=== PATIENT | male | born 1980 | race Two or more races ===

== ENCOUNTER 2018-12-29 22:52 | Emergency (ER) | payer MEDICAID ==
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
[2018-12-29] MEDS ORDERED: OLANZapine DISINTEGR 5 MG TAB PO ONE (23:22)
[2018-12-29 23:41] LABS: PLATELET COUNT 219 10^3/uL (150-400)
[2018-12-30 08:36] VITALS: BP 101/69
[2018-12-30] MEDS ORDERED: OLANZapine 10 MG/2 ML VIAL ONE (13:33)
[2018-12-30] MEDS ORDERED: HALOPERIDOL LACT 5 MG/ML INJ ONE (13:39)
[2018-12-30] MEDS ORDERED: OLANZapine 10 MG/2 ML VIAL IM ONE (13:41)
[2018-12-30] MEDS ORDERED: HALOPERIDOL LACT 5 MG/ML INJ IM ONE (13:41)
[2018-12-30] MEDS ORDERED: OLANZapine DISINTEGR 10 MG TAB ONE (14:00)
[2018-12-30] MEDS ORDERED: OLANZapine DISINTEGR 10 MG TAB PO ONE (14:07)
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
--- NOTE | 2018-12-30 18:54 | ASMTTCLDSP ---
TLC Discharge Disposition Disposition: Answers: Discharge If Answers: Yes DISCHARGED: Patient/family given suicide hotline info & SAMHSA brochure? Disposition Notes: Notes: Pt given substance use , MHP and medical/mental health resources. Discharge Concerns/Recommendations: Notes: In consultation with [facility] ED physician, Gwen Mclean MD, and on-call psychiatrist, Elías Cervantes MD, both concurred that pt does not appear to meet 27-65 criteria requiring psychiatric hospitalization as pt does not appear to be an imminent risk of harm to self/others/gravely disabled due to a mental illness condition. Psychiatrist vacating M1 Elías Cervantes MD Hold: Date and time M1 hold 12/30/2018 06:00 PM vacated (time format is hh:mm): Date Signed: 12/30/2018 06:53 PM Electronically Signed By:Doreen Munoz
== END 2018-12-30 18:24 | disposition home or self-care (01) ==
LOC: EEVIPCON 22:52
DX: F15.159 Other stimulant abuse with stimulant-induced psychotic disorder, unspecified (principal)
CPT/HCPCS: 80305; G0480; J1630